=== PATIENT | female | born 1995 | race African-American/Black ===

== ENCOUNTER 2016-09-01 23:54 | Emergency (ER) | payer OTHER ==
[2016-09-02 00:01] VITALS: BP 102/68; PULSE 94; TEMP 97; BMI 23.3
--- NOTE | 2016-09-02 00:30 | PDOC ---
History of Present Illness - General Chief Complaint: Pain Stated Complaint: 28 WEEKS Time Seen by Provider: 09/02/16 00:05 History Source: Patient Exam Limitations: No Limitations - History of Present Illness Travel History: No Initial Comments: 09/02/16 00:26 28 Weeks , 21yo female patient presented to ED c/o upper abd pain. Patient states she was seen and evaluated by L&D department and sent to ED for further evaluation. Patient reports epigastric abd pain that began around 9pm last night. Patient denies n/v/d, fever, rash, constipation, back pain, CP, diff breathing or any other complaints at this time. Timing/Duration: reports: intermittent Quality: reports: mild Abdominal Pain Onset Location: reports: epigastric Pain Radiation: reports: no radiation Activities at Onset: reports: no specific activity Treatment Prior to Arrive: worse with: analgesics, antacids, cold pack, heat, laxative, enema, other Aggravating Factors: worse with: None, Defecation, Eating, Emotional upset, Exertion, [place], Movement, Voiding, Change in position Alleviating Factors: worse with: None, Belching, Shallow Breathing, Defecation, Eating, Holding Breath, Passing Gas, Change in Position, Rest, Voiding, Vomiting Past History - Travel Traveled outside of the country in the last 30 days: No Close contact w/someone who was outside of country & ill: No - Past Medical History Allergies/Adverse Reactions: Allergies Allergy/AdvReac Type Severity Reaction Status Date / Time No Known Allergies Allergy Verified 09/02/16 00:01 Home Medications: Ambulatory Orders Vitamins (Sjr) - 1 tab PO DAILY 09/01/16 Other medical history: denies - Reproductive History Is Patient Now?: Yes - Psycho/Social/Smoking Cessation Hx Anxiety: No Suicidal Ideation: No Smoking History: Never smoked Have you smoked in the past 12 months: No Number of Cigarettes Smoked Daily: 0 Hx Alcohol Use: No Drug/Substance Use Hx: No Substance Use Type: None Abd/GI Specific PMHX - Complaint Specific PMHX Colitis: No Diverticulitis: No Gall Bladder Disease: No GERD: No Hepatitis: No Irritable Bowel Synd (IBS): No Pancreatitis: No GI Ulcer Disease: No Review of Systems - Review of Systems Able to Perform ROS?: Yes Is the patient limited German proficient: No Constitutional: No: Chills, Fever Respiratory: No: Cough, Orthopnea, Shortness of Breath, Stridor, Wheezing Cardiac (ROS): No: Chest Pain, Edema, Palpitations ABD/GI: Yes: Other (Epigastric Abdominal Pain). No: Diarrhea, Nausea, Poor Appetite, Poor Fluid Intake, Rectal Bleeding, Vomiting, Indigestion, Tarry Stools : No: Burning, Dysuria, Discharge, Frequency, Flank Pain, Hematuria, Pain, Urgency Musculoskeletal: No: Back Pain Integumentary: No: Bruising, Erythema, Rash Neurological: No: Headache, Paresthesia, Seizure, Tremors, Weakness, Ataxia, Dizziness All Other Systems: Reviewed and Negative *Physical Exam - Vital Signs Last Vital Signs Temp Pulse Resp BP Pulse Ox 97 F L 94 H 18 102/68 100 09/01/16 23:59 09/01/16 23:59 09/01/16 23:59 09/01/16 23:59 09/01/16 23:59 - Physical Exam General Appearance: Yes: Nourished, Appropriately Dressed, Mild Distress. No: Apparent Distress, Moderate Distress, Severe Distress, Obese Neck: positive: Trachea midline, Supple. negative: Rigid, Decreased range of motion, Stridor, Lymphadenopathy (R), Lymphadenopathy (L) Respiratory/Chest: positive: Lungs Clear, Normal Breath Sounds. negative: Respiratory Distress, Accessory Muscle Use, Labored Respiration, Rapid RR, Decreased Breath Sounds, Rhonchi, Stridor, Wheezing Cardiovascular: positive: Regular Rhythm, Regular Rate. negative: Edema, JVD, Murmur Gastrointestinal/Abdominal: positive: Normal Bowel Sounds, Soft, Distended ( ), Tenderness (+ Epigastric). negative: Guarding, Rebound Musculoskeletal: positive: Normal Inspection. negative: CVA Tenderness Extremity: positive: Normal Capillary Refill, Normal Inspection, Normal Range of Motion. negative: Pedal Edema, Swelling Integumentary: positive: Normal Color, Dry, Warm Neurologic: positive: warranty administrator II-XII NML intact, Fully Oriented, Alert, Normal Mood/ Affect, Normal Response, Motor Strength /5 ED Treatment Course - LABORATORY CBC & Chemistry Diagram: 09/02/16 00:27 09/02/16 00:27 - RADIOLOGY Radiology Studies Ordered: Category Date Time Status GALLBLADDER US [US] Stat Ultrasound 09/02/16 00:13 Ordered Progress Note - Progress Note Progress Note: Normal Ultrasound of Gall Bladder. Labs WNL. Urine WNL. D/c to home with f/u. prob GERD r/t pregancy. *DC/Admit/Observation/Transfer Diagnosis at time of Disposition: Abdominal pain Qualifiers: Abdominal location: epigastric Qualified Code(s): R10.13 - Epigastric pain - Discharge Dispostion Disposition: HOME Condition at time of disposition: Stable Admit: No - Patient Instructions Printed Discharge Instructions: DI for Gastroesophageal Reflux Disease (GERD), DI for Abdominal Pain -- Early Additional Instructions: FOLLOW UP WITH YOUR LEGAL ADVISER OR YOUR PRIMARY CARE PROVIDER. TYLENOL FOR PAIN/ FEVER. AVOID GREASY/SPICY FOODS, AVOID SODA. INCREASE WATER INTAKE. TRY CRACKERS. RETURN IF SYMPTOMS WORSEN, OR ANY CONCERNS FOR FURTHER EVALUATION. TRY OVER THE COUNTER ZANTAC FOR SYMPTOMS MANAGEMENT. Print Language: KAZAKH
[2016-09-02 00:37] LABS: BASOPHIL 0.5 % (0-2.0); EOSINOPHIL 1.7 % (0-4.5); MCH 29.4 pg (25.7-33.7); MCHC 33.3 g/dl (32.0-36.0); MEAN CELL VOLUME 88.2 fl (80-96); MEAN PLT VOLUME 9.2 fl (7.5-11.1); NEUTROPHILS 61.3 % (42.8-82.8); PLATELET COUNT 240 K/MM3 (134-434); RDW 12.8 % (11.6-15.6); WHITE BLOOD COUNT 9.6 K/mm3 (4.0-10.0)
[2016-09-02 01:05] LABS: ALBUMIN 2.6 g/dl (3.4-5.0); AMYLASE 116 U/L (25-115); ANION GAP 11 (8-16); BILIRUBIN,TOTAL 0.2 mg/dL (0.2-1.0); CALCIUM 8.6 mg/dL (8.5-10.1); CO2 27 mmol/L (21-32); CREATININE 0.8 mg/dL (0.55-1.02); GLUCOSE,RANDOM 79 mg/dL (74-106); SGOT/AST 11 U/L (15-37); SGPT/ALT 14 U/L (12-78); TOT PROT 6.7 g/dl (6.4-8.2)
[2016-09-02 01:06] LABS: ALK PHOS 86 U/L (45-117)
[2016-09-02 02:00] LABS: URINE APPEARANCE CLEAR; URINE BILIRUBIN NEGATIVE (NEGATIVE); URINE BLOOD NEGATIVE (NEGATIVE); URINE COLOR LTYELLOW; URINE GLUCOSE (UA) NEGATIVE (NEGATIVE); URINE KETONE NEGATIVE (NEGATIVE); URINE LEUK ESTERASE NEGATIVE (NEGATIVE); URINE NITRITE NEGATIVE (NEGATIVE); URINE PROTEIN NEGATIVE (NEGATIVE); URINE UROBILINOGEN NEGATIVE E.U./dl (0.2-1.0)
== END 2016-09-02 02:02 | disposition home or self-care (01) ==
LOC: JER 23:54
DX: O26.893 Other specified pregnancy related conditions, third trimester (principal); R10.13 Epigastric pain; Z3A.28 28 weeks gestation of pregnancy
CPT/HCPCS: 36415; 76705-TC; 80053; 81003; 82150; 83690; 85025; 87086; 99283-25

== ENCOUNTER 2016-11-23 16:35 | Inpatient (IN) | payer OTHER ==
[2016-11-23 17:09] VITALS: BMI 26.6
[2016-11-23] MEDS ORDERED: BUTORPHANOL TARTRATE 1 MG/ML VIAL IVPB ONE (18:16)
--- NOTE | 2016-11-23 18:37 | HP ---
Past Medical History - Primary Care Physician PCP:: Hallie Kraft - Admission Chief Complaint: 21 yrs 11 40.3 weeks gestation srom since 3.00 pm History of Present Illness: PNC at [facility]. work Up , Opos, Rpr nr, Hbsag neg, Rubella pos, Quantifero neg, GBS neg , ! HrGtt 105, AfP neg NT screen neg, Modified Sequential neg Sono done By MFM reviewed . 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 Weeks Gestation by Dates: 40.3 ...EDC by Dates: 11/20/16 Heme/Onc: Yes: Anemia Infectious Disease: Yes: STD's (h/o chlamydia treated in 11/2012 & 05/2016 & 2015) Psych: No: Addictions, Anxiety, Bipolar, Depression, Panic Endocrine: No: Diabetes Mellitus - Past Surgical History Past Surgical History: Yes: None Hx Myomectomy: No Hx Transabdominal Cerclage: No - Smoking History Smoking history: Never smoked Have you smoked in the past 12 months: No Aproximately how many cigarettes per day: 0 - Alcohol/Substance Use Hx Alcohol Use: No History of Substance Use: reports: None Home Medications - Allergies Allergies/Adverse Reactions: Allergies Allergy/AdvReac Type Severity Reaction Status Date / Time No Known Allergies Allergy Verified 11/19/16 02:08 - Home Medications Home Medications: Ambulatory Orders Vitamins (Sjr) - 1 tab PO DAILY 09/01/16 Physical Exam - Maternity Vital Signs: Vital Signs Temperature 98.2 F 11/23/16 18:00 Pulse Rate 87 11/23/16 18:00 Respiratory Rate 20 11/23/16 18:00 Blood Pressure 121/82 11/23/16 18:00 O2 Sat by Pulse Oximetry (%) Constitutional: Yes: Well Nourished, No Distress Eyes: Yes: WNL HENT: Yes: WNL Neck: Yes: WNL Cardiovascular: Yes: WNL Lungs: Clear to auscultation Breast(s): Yes: WNL - Abdominal Exam/OB Fundal Height: 38 Number of Fetuses: Single Presentation: Vertex Contractions: Yes Regularity: Irregular (4-6min) Intensity: Mild Monitor Mode: External Heart Rate (range): 140 Heart Rate Location: [facility] Category: I Accelerations: Uniform Decelerations: None - Vaginal Exam/OB Vaginal Bleediing: No Speculum Exam: No Dilatation (cm): 2 Effacement (%): 60 Nitrazine Test: Positive Amniotic Fluid: Yes: Clear (gross leaking) Presentation: Vertex/Position Station: -2 - Physical Exam Musculoskeletal: Yes: WNL Extremities: Yes: WNL Edema: Yes Edema: LLE: Trace, RLE: Trace Integumentary: Yes: Tattoos Deep Tendon Reflex Grade: Normal +2 ...Motor Strength: WNL Psychiatric: Yes: WNL, Alert, Oriented - Labs Lab Results: Laboratory Tests 11/23/16 11/23/16 11/23/16 19:00 19:00 19:00 RBC 3.95 Hgb 11.5 D Hct 35.0 D Plt Count 223 Neutrophils % 68.2 Lymphocytes % 22.1 Monocytes % 9.0 INR 0.98 PTT (Actin FS) 30.0 Sodium 136 Potassium 4.2 Chloride 102 Carbon Dioxide 26 BUN 7 Creatinine 0.5 L D Random Glucose 68 L Calcium 8.8 Laboratory Tests 11/23/16 19:00 Blood Type O POSITIVE Problem List - Problems (1) Post term over 40 weeks Code(s): O48.0 - POST-TERM (2) SROM (spontaneous rupture of membranes) Code(s): XAJ5784 - (3) Labor established Code(s): QXT6183 - Assessment/Plan 21 yrs 40.3 weeks , SROM, gbs neg Plan pitocin augmentation prn vaginal delivery trial
[2016-11-23] MEDS: DEXTROSE 5%-LACTATED RINGERS 1,000 ML IV SCH ×2 (18:40→21:30)
[2016-11-23] MEDS ORDERED: SODIUM PHOSPHATE/NA BIPHOS 133 ML ENEMA PR ONE (18:49)
[2016-11-23 19:33] LABS: BASOPHIL 0.4 % (0-2.0); EOSINOPHIL 0.3 % (0-4.5); MCH 29.1 pg (25.7-33.7); MCHC 32.9 g/dl (32.0-36.0); MEAN CELL VOLUME 88.6 fl (80-96); MEAN PLT VOLUME 10.8 fl (7.5-11.1); NEUTROPHILS 68.2 % (42.8-82.8); PLATELET COUNT 223 K/MM3 (134-434); RDW 14.1 % (11.6-15.6); WHITE BLOOD COUNT 8.9 K/mm3 (4.0-10.0)
[2016-11-23 19:50] LABS: INR 0.98 (0.82-1.09); PROTHROMBIN TIME (PATIENT) 10.8 SEC (9.98-11.88)
[2016-11-23 20:01] LABS: CALCIUM 8.8 mg/dL (8.5-10.1); COCKROFT - GAULT 199.1975; CREATININE 0.5 mg/dL (0.55-1.02)
[2016-11-23 21:47] LABS: PLATELET ESTIMATE ADEQUATE (NORMAL)
[2016-11-23 21:48] LABS: PLATELET COMMENT2 FEW GIANT PLTS
[2016-11-23] MEDS ORDERED: OXYTOCIN 15 UNITS/ LR 250 ML 250 ML IVPB SCH (22:00)
--- NOTE | 2016-11-23 23:31 | PN ---
Progress Note, Labor Vaginal Exam #1 Labor Exam Date: 11/23/16 Labor Exam Time: 23:25 Heart Rate (range): 130-140 Dilatation: 4 Effacement (%): 90 Amniotic Membrane Status: Ruptured Presentation: Vertex/Position Station: -1 Remarks: fhr cat-1 uc 2-3 min pitocin augmentation started at 22.05 hr requests for epidural labor analgesia Vaginal Exam #2 Labor Exam Date: 11/24/16 Labor Exam Time: 03:55 Heart Rate (range): 120-130 Dilatation: 7 Effacement (%): 90 Amniotic Membrane Status: Ruptured Presentation: Vertex/Position (caput) Station: 0 Remarks: [id number] at-1, fhr changing bet cat-1 & cat-2 variable decels on & off are seen pitocin was d/sandi at 2.00am epidural effective since 23.45 hr on 11/23/16 Selected Entries 11/23/16 11/24/16 11/24/16 23:00 01:45 03:00 Temperature 98.0 F 98.7 F Pulse Rate 104 H 96 H Blood Pressure 107/53 105/61 Vaginal Exam #3 Labor Exam Date: 11/24/16 Labor Exam Time: 05:30 Heart Rate (range): 135 Dilatation: antlip Effacement (%): 100 Amniotic Membrane Status: Ruptured Presentation: Vertex/Position (caput) Station: +2 Remarks: fhr cat-2 , sometimes cat-1 uc 2-4 min Selected Entries 11/24/16 05:30 Pulse Rate 93 H Blood Pressure 123/84 6.00am 10 cm/vx +3, /no sensation for pushing /fhr cat-2 ineffective pushes , wait for passive descent. 7.00 am pt encouraged to push actively .
[2016-11-23] MEDS: ELECTROLYTE-148 SOLN 1,000 ML IV SCH (23:40)
[2016-11-24] MEDS ORDERED: FENTANYL/BUPIVACAINE/NS/PF - PCEA - 50 ML DISP.SYRIN EP SCH (00:30)
[2016-11-24] MEDS: ELECTROLYTE-148 SOLN 1,000 ML IV SCH (04:00)
[2016-11-24] MEDS ORDERED: BENZOCAINE 28 GM HEMORRHOIDAL OINTMENT TP PRN (07:37)
[2016-11-24] MEDS ORDERED: BISACODYL 10 MG SUPP.RECT RC PRN (07:37)
[2016-11-24] MEDS ORDERED: METHYLERGONOVINE MALEATE 0.2 MG/1 ML AMP IM PRN (07:37)
[2016-11-24] MEDS ORDERED: WITCH HAZEL 50% (TUCKS) 40 PAD/JAR PAD TP PRN (07:37)
[2016-11-24] MEDS ORDERED: BENZOCAINE 20% 57 GM BOTTLE TP PRN (07:37)
[2016-11-24] MEDS ORDERED: oxyCODONE HCL 5 MG TABLET PO PRN (07:37)
[2016-11-24] MEDS ORDERED: D5W-LR W/ 20 UNITS OXYTOCIN 1,000 ML IV SCH (07:45)
--- NOTE | 2016-11-24 07:54 | PN ---
Delivery - Delivery Vaginal Delivery: No Problems, Spontaneous Type of Anesthesia: Epidural Episiotomy/Laceration: None EBL (cc): 300 (100ml urine post delivery catheterisation ) Delivery, Single - Stages of Labor Date 1st Stage Initiatied: 11/23/16 Time 1st Stage Initiated: 17:00 Date 2nd Stage Initiated: 11/24/16 Time 2nd Stage Initiated: 06:00 Date of Delivery: 11/24/16 Time of Delivery: 07:21 Placenta: Yes: Spontaneous, Uterine Exploration - Condition of Infant Municipal Services Manager/Assistant Statistician Present: No Infant Gender: Female Weight: 5 lb 9 oz Position: Left, OA (cord around shoulder) Total Hours ROM (Hrs/Mins): 16hrs, 25 min - 1 Minute Total Score: 9 5 Minutes Total Score: 10 - [place] Feeding Plan Initial Plan: Elected not to breastfeed exclusively throughout hospitalization Remarks - Remarks Remarks: 21 yrs 40.3 weeks admitted for srom since 3.00pm 11/23/16. GBS neg . PNC at [facility] Pitocin augmentation was done Intrapartum course uneventful
[2016-11-24] MEDS: ACETAMINOPHEN 325 MG TABLET (FP) PO PRN (08:00)
[2016-11-24] MEDS: IBUPROFEN 600 MG TABLET (FP) PO PRN (08:00)
[2016-11-24] MEDS: FERROUS SO4 325 MG TABLET (FP) PO SCH ×3 (09:22→17:09)
[2016-11-24] MEDS: PRENATAL VITAMINS W/ FOLIC ACID TABLET (FP) PO SCH (09:40)
[2016-11-25] MEDS: IBUPROFEN 600 MG TABLET (FP) PO PRN ×2 (01:40→12:03)
[2016-11-25] MEDS: ACETAMINOPHEN 325 MG TABLET (FP) PO PRN ×2 (01:40→12:03)
[2016-11-25 08:52] LABS: BASOPHIL 0.5 % (0-2.0); EOSINOPHIL 0.7 % (0-4.5); MCH 29.6 pg (25.7-33.7); MCHC 33.4 g/dl (32.0-36.0); MEAN CELL VOLUME 88.6 fl (80-96); MEAN PLT VOLUME 10.2 fl (7.5-11.1); NEUTROPHILS 68.7 % (42.8-82.8); PLATELET COUNT 194 K/MM3 (134-434); RDW 14.3 % (11.6-15.6); WHITE BLOOD COUNT 9.8 K/mm3 (4.0-10.0)
[2016-11-25] MEDS: PRENATAL VITAMINS W/ FOLIC ACID TABLET (FP) PO SCH (09:17)
[2016-11-25] MEDS: FERROUS SO4 325 MG TABLET (FP) PO SCH ×3 (09:17→17:30)
[2016-11-25] MEDS ORDERED: DIPHTH,PERTUSS(ACELL),TET 0.5 ML DISP.SYRIN IM ONE (10:00)
--- NOTE | 2016-11-25 10:54 | PN ---
Post Progress Note - Subjective Subjective: asymptomatic Post Day: 1 Type of Delivery: Vital Signs: Vital Signs Temperature 98.2 F 11/25/16 08:29 Pulse Rate 81 11/25/16 08:29 Respiratory Rate 20 11/25/16 08:29 Blood Pressure 100/62 11/25/16 08:29 O2 Sat by Pulse Oximetry (%) 100 11/24/16 05:45 Breast Exam: Yes: Soft, Other (will try to Bf ). No: Engorged Uterus: Yes: Fundus Firm, Fundus below umbilicus, Non-tender Lochia: Yes: Rubra Lochia, amount: Moderate Extremities: Yes: Calves non-tender Perineum: Yes: Intact Activity: Ambulating - Labs Labs: CBC WBC 9.8 K/mm3 (4.0-10.0) 11/25/16 07:30 RBC 3.44 M/mm3 (3.60-5.2) L 11/25/16 07:30 Hgb 10.2 GM/dL (10.7-15.3) L D 11/25/16 07:30 Hct 30.5 % (32.4-45.2) L 11/25/16 07:30 MCV 88.6 fl (80-96) 11/25/16 07:30 MCHC 33.4 g/dl (32.0-36.0) 11/25/16 07:30 RDW 14.3 % (11.6-15.6) 11/25/16 07:30 Plt Count 194 K/MM3 (134-434) 11/25/16 07:30 MPV 10.2 fl (7.5-11.1) 11/25/16 07:30 Neutrophils % 68.7 % (42.8-82.8) 11/25/16 07:30 Lymphocytes % 24.3 % (8-40) 11/25/16 07:30 Monocytes % 5.8 % (3.8-10.2) 11/25/16 07:30 Eosinophils % 0.7 % (0-4.5) D 11/25/16 07:30 Basophils % 0.5 % (0-2.0) 11/25/16 07:30 Platelet Estimate Adequate (NORMAL) 11/23/16 19:00 Platelet Comment Mod large plts 11/23/16 19:00 Platelet Comment Few giant plts 11/23/16 19:00 Problem List - Problems (1) Post term over 40 weeks Code(s): O48.0 - POST-TERM (2) SROM (spontaneous rupture of membranes) Code(s): CPD6782 - (3) Labor established Code(s): BGG5093 - (4) Normal vaginal delivery Code(s): O80 - ENCOUNTER FOR FULL-TERM UNCOMPLICATED DELIVERY Assessment/Plan stable. plan ct pp care
[2016-11-25] MEDS ORDERED: SENNOSIDES/DOCUSATE COMBO (SENNA PLUS) TABLET (UD) PO PRN (22:00)
[2016-11-26] MEDS: ACETAMINOPHEN 325 MG TABLET (FP) PO PRN (03:42)
[2016-11-26] MEDS: IBUPROFEN 600 MG TABLET (FP) PO PRN (03:44)
[2016-11-26] MEDS: FERROUS SO4 325 MG TABLET (FP) PO SCH (07:49)
--- NOTE | 2016-11-26 08:02 | DS ---
Physical Exam-SUPERINTENDENT PIPELINES Vital Signs: Vital Signs Temperature 98.6 F 11/25/16 22:00 Pulse Rate 86 11/25/16 22:00 Respiratory Rate 18 11/25/16 22:00 Blood Pressure 110/53 11/25/16 22:00 O2 Sat by Pulse Oximetry (%) 100 11/24/16 05:45 Constitutional: Yes: Well Nourished. No: Obese Eyes: Yes: WNL HENT: Yes: WNL Neck: Yes: WNL Cardiovascular: Yes: WNL Respiratory: Yes: WNL Gastrointestinal: Yes: WNL ...Rectal Exam: Yes: WNL Renal/: Yes: WNL ....Post : Yes: Uterus firm, Uterus non-tender, Moderate lochia rubra ( perineum intact) Breast(s): Yes: WNL Musculoskeletal: Yes: WNL Extremities: Yes: WNL. No: Calf Tenderness Edema: Yes Edema: LLE: Trace, RLE: Trace Integumentary: Yes: Tattoos Neurological: Yes: WNL ...Motor Strength: WNL Psychiatric: Yes: WNL Labs: CBC, BMP 11/25/16 07:30 11/23/16 19:00 Delivery - Delivery Vaginal Delivery: No Problems, Spontaneous Type of Anesthesia: Epidural Episiotomy/Laceration: None EBL (cc): 300 (100ml urine post delivery catheterisation ) Delivery, Single - Stages of Labor Date 1st Stage Initiatied: 11/23/16 Time 1st Stage Initiated: 17:00 Date 2nd Stage Initiated: 11/24/16 Time 2nd Stage Initiated: 06:00 Date of Delivery: 11/24/16 Time of Delivery: 07:21 Time Placenta Delivered: 07:25 Placenta: Yes: Spontaneous, Uterine Exploration - Condition of Infant Inside Wirer/Division Merchandise Manager Present: No Infant Gender: Female Weight: 5 lb 9 oz Position: Left, OA (cord around shoulder) Total Hours ROM (Hrs/Mins): 16hrs, 25 min - 1 Minute Total Score: 9 5 Minutes Total Score: 10 - [place] Feeding Plan Initial Plan: Elected not to breastfeed exclusively throughout hospitalization Remarks - Remarks Remarks: 21 yrs 40.3 weeks admitted for srom since 3.00pm 11/23/16. GBS neg . PNC at [facility] Pitocin augmentation was done Intrapartum course uneventful . pp course uneventful anemia counselled. discharge today Discharge Summary Reason For Visit: LABOR Current Active Problems Labor established (Acute) Normal vaginal delivery (Acute) Post term over 40 weeks (Acute) SROM (spontaneous rupture of membranes) (Acute) Condition: Stable - Instructions Diet, Activity, Other Instructions: Post Instructions DIET: Continue good diet high in protein, calcium, and iron rich foods. Drink at least eight (8) glasses of water daily in addition to other fluids. Regular diet MEDICATIONS: Continue vitamins and iron as previously directed. Motrin and Tylenol may be taken for minor discomfort. ACTIVITY: Mild to moderate exercise may be started in two (2) weeks. Take frequent rest periods. Resume normal activity after six (6) week check up. WOUND CARE OF OPERATIVE SITE: Continue use of perineal bottle until vaginal discharge stops. Keep area clean. Shower daily. Keep abdominal wound dry. Report any drainage or redness to physician. Tub baths, tampons and douches are not permitted for [address] Breast feeding x& or Bottle feeding BREAST CARE: (For those that are not breast feeding): If engorgement occurs: Wear tight fitting bra. Take Tylenol or Motrin for pain. Apply cold packs (ice in bags to each breast ) FAMILY PLANNING: There are many control alternatives to pursue and they should be discussed at your first office visit. You may resume sexual activity after your six (6) week check up. (Remember, breast feeding is not a contraceptive) NEXT PHYSICIAN APPOINTMENT: Be certain to call for a six (6) week appointment, unless otherwise directed. Call Clinic or got to Emergency Dept if you have any of the following: Heavy vaginal bleeding Painful urination Leg pain Unusual odor noted to vaginal bleeding High fever Red streaking noted on breast Referrals: Hallie Kraft MD [Staff Physician] - Disposition: HOME - Home Medications Comprehensive Discharge Medication List: Ambulatory Orders Vitamins (Sjr) - 1 tab PO DAILY 09/01/16 Acetaminophen [Tylenol .Regular Strength -] 650 mg PO Q3H PRN #0 tablet Ferrous Sulfate [Feosol] 325 mg PO BID #60 tab 11/25/16 Ibuprofen [Motrin -] 200 mg PO Q4H PRN #0 tablet 11/25/16 Vitamins (Sjr) - 1 tab PO DAILY tablet 11/25/16
[2016-11-26 08:35] VITALS: BP 98/66; PULSE 81; TEMP 97.9
[2016-11-26] MEDS: PRENATAL VITAMINS W/ FOLIC ACID TABLET (FP) PO SCH (10:41)
== END 2016-11-26 11:30 | disposition home or self-care (01) | DRG 560 ==
LOC: JLDR 16:35 → J3W 11-24 08:40
PROVIDERS: ADMIT Obstetrics & Gynecology; ATTEND Obstetrics & Gynecology
PROC: 10E0XZZ Delivery of Products of Conception, External Approach (ICD-10-PCS; principal; 2016-11-24)
DX: O48.0 Post-term pregnancy (principal); Z3A.40 40 weeks gestation of pregnancy; O99.02 Anemia complicating childbirth; Z37.0 Single live birth
CPT/HCPCS: 36415; 59409; 80048; 85025; 85610; 85730; 86593; 86850; 86900; 86901; 90715

== ENCOUNTER 2018-10-08 08:33 | Emergency (ER) | payer OTHER ==
[2018-10-08 08:48] VITALS: BP 110/62; PULSE 89; TEMP 98.2; BMI 24.6
[2018-10-08] MEDS ORDERED: TOBRAMYCIN 0.3% OPHTH SOLN 5 ML BOTTLE OD ONE (09:06)
[2018-10-08] MEDS ORDERED: TOBRAMYCIN 0.3% OPHTH SOLN 5 ML BOTTLE ONE (09:10)
--- NOTE | 2018-10-08 09:13 | PDOC ---
History of Present Illness - General Chief Complaint: Eye Problem Stated Complaint: EYE PROBLEM Time Seen by Provider: 10/08/18 09:00 History Source: Patient Exam Limitations: No Limitations - History of Present Illness Initial Comments: 10/08/18 09:09 onset of thick yellow drainage from left eye started this am while at [facility] and has worsened Timing/Duration: unsure, 24 hours Severity: moderate Associated Symptoms: reports: fever/chills Past History - Travel Traveled outside of the country in the last 30 days: No Close contact w/someone who was outside of country & ill: No - Past Medical History Allergies/Adverse Reactions: Allergies Allergy/AdvReac Type Severity Reaction Status Date / Time No Known Allergies Allergy Verified 10/08/18 08:45 Home Medications: Ambulatory Orders Tobramycin 0.3% Ophth Soln [Tobrex Ophthalmic Solution -] 2 drop OS QID #1 drops 10/08/18 Asthma: No Cancer: No Cardiac Disorders: No Diabetes: No HTN: No Seizures: No Thyroid Disease: No - Suicide/Smoking/Psychosocial Hx Smoking History: Never smoked Have you smoked in the past 12 months: No Number of Cigarettes Smoked Daily: 0 Hx Alcohol Use: No Drug/Substance Use Hx: No Substance Use Type: None Hx Substance Use Treatment: No *Physical Exam - Vital Signs Last Vital Signs Temp Pulse Resp BP Pulse Ox 98.2 F 89 18 110/62 100 10/08/18 08:45 10/08/18 08:45 10/08/18 08:45 10/08/18 08:45 10/08/18 08:45 - Physical Exam General Appearance: Yes: Nourished, Appropriately Dressed, Apparent Distress, Mild Distress HEENT: positive: Normal ENT Inspection, TMs Normal, Pharynx Normal, Other ( erythema with thick yellow drianage from left eye, mild swelling to lid. Visual acuity 20/25 bilaterally). negative: TINY Neck: positive: Lymphadenopathy (R), Lymphadenopathy (L). negative: Tender Respiratory/Chest: positive: Lungs Clear, Normal Breath Sounds Integumentary: positive: Normal Color, Dry, Warm Neurologic: positive: graphics edit technician II-XII NML intact, Fully Oriented, Alert, Normal Mood/ Affect, Normal Response, Motor Strength 5/5 Moderate Sedation - Procedure Monitoring Vital Signs: Procedure Monitoring Vital Signs Temperature 98.2 F 10/08/18 08:45 Pulse Rate 89 10/08/18 08:45 Respiratory Rate 18 10/08/18 08:45 Blood Pressure 110/62 10/08/18 08:45 O2 Sat by Pulse Oximetry (%) 100 10/08/18 08:45 *DC/Admit/Observation/Transfer Diagnosis at time of Disposition: Acute bacterial conjunctivitis Qualifiers: Laterality: left Qualified Code(s): H10.32 - Unspecified acute conjunctivitis, left eye - Discharge Dispostion Disposition: HOME Condition at time of disposition: Stable Decision to Admit order: No - Prescriptions Prescriptions: Tobramycin 0.3% Ophth Soln [Tobrex Ophthalmic Solution -] 2 drop OS QID #1 drops - Referrals - Patient Instructions Printed Discharge Instructions: DI for Conjunctivitis Additional Instructions: Rest, avoid rubbing eyes Wash hands frequently as this is very contagious Wash hands, use eye drops as directed, wash hands after use Do not share eyedrops with other person to may become infected as this will infect them Tobramycin drops 2 drops to affected eye 4 times a day for 5 days Avoid contact with others until redness and discharge is gone from eyes. Followup with ophthalmology or private physician as needed - Post Discharge Activity Forms/Work/School Notes: Back to Work
== END 2018-10-08 09:20 | disposition home or self-care (01) ==
LOC: JER 08:33 → JERFT 08:33
DX: H10.32 Unspecified acute conjunctivitis, left eye (principal)
CPT/HCPCS: 99281-25

== ENCOUNTER 2019-06-09 08:35 | Emergency (ER) | payer OTHER ==
[2019-06-09 08:40] VITALS: TEMP 98.2; BMI 24.1
--- NOTE | 2019-06-09 08:48 | PDOC ---
History of Present Illness - General Chief Complaint: Cold Symptoms Stated Complaint: COLD SYMPTOMS Time Seen by Provider: 06/09/19 08:40 History Source: Patient - History of Present Illness Timing/Duration: reports: other Past History - Past Medical History Allergies/Adverse Reactions: Allergies Allergy/AdvReac Type Severity Reaction Status Date / Time No Known Allergies Allergy Verified 06/09/19 08:37 Asthma: No Cancer: No Cardiac Disorders: No Diabetes: No HTN: No Seizures: No Thyroid Disease: No - Psycho Social/Smoking Cessation Hx Smoking History: Never smoked Have you smoked in the past 12 months: No Number of Cigarettes Smoked Daily: 0 Hx Alcohol Use: No Drug/Substance Use Hx: No Substance Use Type: None Hx Substance Use Treatment: No Review of Systems - Review of Systems Constitutional: Yes: Malaise. No: Chills, Fever HEENTM: Yes: Ear Pain, Throat Pain Respiratory: No: Cough *Physical Exam - Vital Signs Last Vital Signs Temp Pulse Resp BP Pulse Ox 98.2 F 78 18 99/54 L 99 06/09/19 08:38 06/09/19 08:38 06/09/19 08:38 06/09/19 08:38 06/09/19 08:38 - Physical Exam Comments: 06/09/19 08:48 General Appearance: Yes: Appropriately Dressed. No: Apparent Distress HEENT: positive: Normal ENT Inspection, Normal Voice. negative: Scleral Icterus (R), Scleral Icterus (L) Neck: positive: Supple. negative: Lymphadenopathy (R), Lymphadenopathy (L) Respiratory/Chest: positive: Lungs Clear, Normal Breath Sounds. negative: Respiratory Distress Cardiovascular: positive: Regular Rate, S1, S2 Integumentary: positive: Dry, Warm Neurologic: positive: Fully Oriented, Alert, Normal Mood/Affect Medical Decision Making - Medical Decision Making 06/09/19 08:47 23-year-old female, no significant history, here with sore throat with headache , left ear pain and malaise x2 days. No cough, fever, photophobia, neck pain, vomiting diarrhea or rash see exam Viral URI Exam unremarkable (BP low-baseline per pt) -Dc w/ supportive tx Discharge - Discharge Information Problems reviewed: Yes Clinical Impression/Diagnosis: URI (upper respiratory infection) Qualifiers: URI type: unspecified viral URI Qualified Code(s): J06.9 - Acute upper respiratory infection, unspecified Condition: Good Disposition: HOME - Follow up/Referral - Patient Discharge Instructions Patient Printed Discharge Instructions: DI for Viral Upper Respiratory Infection -- Adult - Post Discharge Activity Work/Back to School Note: Back to Work
[2019-06-09 08:51] VITALS: BP 97/65; PULSE 81
[2019-06-09] MEDS ORDERED: ACETAMINOPHEN 160 MG/5 ML 473ML BULK BOTTLE ONE (09:18)
== END 2019-06-09 09:05 | disposition home or self-care (01) ==
LOC: JERFT 08:35
DX: J06.9 Acute upper respiratory infection, unspecified (principal); B97.89 Other viral agents as the cause of diseases classified elsewhere
CPT/HCPCS: 99282-25

== ENCOUNTER 2019-09-30 14:24 | Emergency (ER) | payer OTHER ==
[2019-09-30 14:34] VITALS: BP 115/62; PULSE 81; TEMP 98.2; BMI 22.4
--- NOTE | 2019-09-30 14:34 | PDOC ---
Rapid Medical Evaluation Time Seen by Provider: 09/30/19 14:31 Medical Evaluation: Allergies Allergy/AdvReac Type Severity Reaction Status Date / Time No Known Allergies Allergy Verified 06/09/19 08:37 09/30/19 14:32 have performed a brief in-person evaluation of this patient. The patient presents with a chief complaint of: "I've been sweating all day and feel dehydrated" per pt. Also w/ ? increased thirst. No documented fever. No body aches or URI sxs. Denies any pmhx Pertinent physical exam findings:stable and well bipin I have ordered the following:upreg/ua/FS The patient will proceed to the ED for further evaluation. Discharge Disposition - Diagnosis Sweating - Referrals - Patient Instructions - Post Discharge Activity
[2019-09-30] MEDS ORDERED: IBUPROFEN 600 MG TABLET (FP) PO ONE ×2 (15:22→15:24)
[2019-09-30 16:05] LABS: EPI CELLS 0.8 /HPF (0-5/HPF); HYALINE CASTS 1 /lpf (0-8); URINE APPEARANCE CLEAR; URINE BACTERIA 9.1 /hpf (NEGATIVE); URINE BILIRUBIN NEGATIVE (NEGATIVE); URINE COLOR YELLOW; URINE GLUCOSE (UA) NEGATIVE (NEGATIVE); URINE KETONE NEGATIVE (NEGATIVE); URINE LEUK ESTERASE NEGATIVE (NEGATIVE); URINE NITRITE NEGATIVE (NEGATIVE); URINE PROTEIN NEGATIVE (NEGATIVE); URINE RBC 2 /hpf (0-4); URINE UROBILINOGEN 0.2 mg/dL (0.2-1.0); URINE WBC 1 /hpf (0-5)
--- NOTE | 2019-09-30 16:16 | PDOC ---
History of Present Illness - General Chief Complaint: Weakness Stated Complaint: PAIN Time Seen by Provider: 09/30/19 14:31 History Source: Patient Exam Limitations: No Limitations Past History - Travel Traveled outside of the country in the last 30 days: No Close contact w/someone who was outside of country & ill: No - Past Medical History Allergies/Adverse Reactions: Allergies Allergy/AdvReac Type Severity Reaction Status Date / Time No Known Allergies Allergy Verified 09/30/19 14:34 Home Medications: Ambulatory Orders Ibuprofen 600 mg PO Q6H #30 tablet 09/30/19 Oseltamivir Phosphate [Tamiflu] 75 mg PO BID #10 capsule 09/30/19 Asthma: No Cancer: No Cardiac Disorders: No COPD: No Diabetes: No HTN: No Seizures: No Thyroid Disease: No - Psycho Social/Smoking Cessation Hx Smoking History: Never smoked Have you smoked in the past 12 months: No Number of Cigarettes Smoked Daily: 0 Hx Alcohol Use: No Drug/Substance Use Hx: No Substance Use Type: None Hx Substance Use Treatment: No Review of Systems - Review of Systems Able to Perform ROS?: Yes Comments:: 09/30/19 16:13 CONSTITUTIONAL: Present: Subjective fever, chills, body aches Absent: diaphoresis, generalized weakness, malaise, loss of appetite HEENT: Present: rhinorrhea, nasal congestion, throat pain. Absent: difficulty swallowing, mouth swelling, ear pain, eye pain, visual Changes CARDIOVASCULAR: Absent: chest pain, loss of consciousness, palpitations, irregular heart rate, peripheral edema RESPIRATORY: Absent: Cough, shortness of breath, dyspnea with exertion, orthopnea, wheezing, stridor, hemoptysis GASTROINTESTINAL: Absent: abdominal pain, abdominal distension, nausea, vomiting, diarrhea, constipation, melena, hematochezia SKIN: Absent: rash, itching, pallor NEUROLOGIC: Absent: Headache, focal weakness or paresthesias, dizziness, unsteady gait, seizure, mental status changes, bladder or bowel incontinence Is the patient limited French proficient: No *Physical Exam - Vital Signs Last Vital Signs Temp Pulse Resp BP Pulse Ox 98.2 F 81 18 115/62 100 09/30/19 14:31 09/30/19 14:31 09/30/19 14:31 09/30/19 14:31 09/30/19 14:31 - Physical Exam 02/26/20 16:13 GENERAL: Well developed, well nourished. Awake and alert. No acute distress. HEENT: Normocephalic, atraumatic. PERRLA, EOMI. No conjunctival pallor. Sclera are non- icteric. Moist mucous membranes. Oropharynx is clear. NECK: Supple. Full ROM. No JVD. No lymphadenopathy. CARDIOVASCULAR: Regular rate and rhythm. No murmurs, rubs, or gallops. Distal pulses are 2+ and symmetric. PULMONARY: No evidence of respiratory distress. Lungs clear to auscultation bilaterally. No wheezing, rales or rhonchi. ABDOMINAL: Soft. Non-tender. Non-distended. No rebound or guarding. No organomegaly. Normoactive bowel sounds. MUSCULOSKELETAL Normal range of motion at all joints. No bony deformities or tenderness. No CVA tenderness. EXTREMITIES: No cyanosis. No clubbing. No edema. No calf tenderness. SKIN: Warm and dry. Normal capillary refill. No rashes. No jaundice. NEUROLOGICAL: Alert, awake, appropriate. Cranial nerves 2-12 intact. No deficits to light touch and temperature in face, upper extremities and lower extremities. No motor deficits in the in face, upper extremities and lower extremities. Normoreflexic in the upper and lower extremities. Normal speech. Toes are down- going bilaterally. Gait is normal without ataxia. PSYCHIATRIC: Cooperative. Good eye contact. Appropriate mood and affect. ED Treatment Course - ADDITIONAL ORDERS Additional order review: Laboratory Results 09/30/19 09/30/19 09/30/19 14:55 14:55 14:52 POC Glucometer 85 Urine Color Yellow Urine Appearance Clear Urine pH 7.0 Ur Specific [place] 1.008 L Urine Protein Negative Urine Glucose (UA) Negative Urine Ketones Negative Urine Blood Trace Urine Nitrite Negative Urine Bilirubin Negative Urine Urobilinogen 0.2 Ur Leukocyte Esterase Negative Urine WBC (Auto) 1 Urine RBC (Auto) 2 Urine Casts (Auto) 1 U Epithel Cells (Auto) 0.8 Urine Bacteria (Auto) 9.1 Urine HCG, Qual Negative 09/30/19 14:52 POC Glucometer 85 - Medications Given in the ED: ED Medications Discontinued Medications Generic Name Dose Route Start Last Admin Trade Name Freq PRN Reason Stop Dose Admin Ibuprofen 600 mg 09/30/19 15:22 09/30/19 15:26 Motrin - PO 09/30/19 15:23 600 mg ONCE ONE Administration Medical Decision Making - Medical Decision Making 09/30/19 16:13 Patient is a 24-year-old female, otherwise healthy, who presents to the ER today for 2 days of chills, body aches, subjective fevers and nasal congestion. She states that she has been very thirsty and has been drinking more than usual. She states that at home she drinks many glasses of water and she still feels dehydrated and weak. 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 Denies earaches, cough, sore throat, nausea, vomiting and urinary symptoms. A/P: Viral illness On exam lungs are clear to auscultation bilateral without wheezes rales or rhonchi. Mild nasal congestion noted. Rest of exam is unremarkable. POC glucose: 81 UA is negative, negative. Rapid flu is negative, however given patient works at a detention will treat for flu as she has had sick contacts. Discharge home with primary care follow-up. I discussed the physical exam findings, ancillary test results and final diagnoses with the patient. I answered all of the patient's questions. The patient was satisfied with the care received and felt comfortable with the discharge plan and treatment plan. The Patient agrees to follow up with the primary care physician/specialist within 24-72 hours. Return precautions were given. Discharge - Discharge Information Problems reviewed: Yes Clinical Impression/Diagnosis: Flu-like symptoms Condition: Stable Disposition: HOME - Admission No - Follow up/Referral Referrals: Ivonne Alejandra MD [Primary Care Provider] - - Patient Discharge Instructions Patient Printed Discharge Instructions: DI for Influenza -- Adult Additional Instructions: You have the flu. This is a virus that will get better on its own in approximately 7-10 days. You will most likely have a fever for 7-10 days because of the flu. This is to be expected. Drink plenty of fluids to prevent dehydration and get plenty of rest. Warm tea and cough drops may help your symptoms as well. Take the tamiflu twice a day for 5 days to help reduce the symptoms of the flu. This medication will not cure the flu. Take Motrin as directed for pain and fever. Take all other medications as prescribed. Follow up with your primary care doctor this week Return to the ED for difficulty breathing, shortness of breath, weakness, or if you have any other changes in your symptoms. - Post Discharge Activity Work/Back to School Note: Back to Work
== END 2019-09-30 16:33 | disposition home or self-care (01) ==
LOC: JERFT 14:24
DX: J11.1 Influenza due to unidentified influenza virus with other respiratory manifestations (principal)
CPT/HCPCS: 81003; 82962; 84703; 87804; 99283-25

== ENCOUNTER 2020-09-22 16:46 | Emergency (ER) | payer OTHER ==
[2020-09-22] MEDS ORDERED: NAPROXEN 500 MG TABLET PO ONE (17:33)
[2020-09-22 17:37] VITALS: BP 102/64; PULSE 65; TEMP 98.1; BMI 26.6
[2020-09-22] MEDS ORDERED: NAPROXEN 500 MG TABLET ONE (17:38)
[2020-09-22] MEDS ORDERED: CYCLOBENZAPRINE HCL 10 MG TABLET (FP) PO ONE (18:49)
[2020-09-22] MEDS ORDERED: CYCLOBENZAPRINE HCL 10 MG TABLET (FP) ONE (18:56)
== END 2020-09-22 19:04 | disposition home or self-care (01) ==
LOC: FER 16:46
DX: M79.642 Pain in left hand (principal); M54.5 Low back pain
CPT/HCPCS: 72070-TC-FY; 72100-TC-FY; 73130-TC-LT-FY; 99285-25

== ENCOUNTER 2021-04-18 12:51 | Emergency (ER) | payer SELFPAY ==
[2021-04-18 13:01] VITALS: BP 116/68; PULSE 85; TEMP 98.3; BMI 23.3
== END 2021-04-18 15:50 | disposition home or self-care (01) ==
LOC: JER 12:51
DX: J02.9 Acute pharyngitis, unspecified (principal); Z11.52 Encounter for screening for COVID-19
CPT/HCPCS: 87880; 99283-25; C9803; U0003; U0005

== ENCOUNTER 2021-11-11 16:03 | Emergency (ER) | payer OTHER ==
[2021-11-11 16:08] VITALS: BP 111/59; PULSE 75; TEMP 99.1; BMI 25.0
[2021-11-12 16:07] LABS: SARS-CoV-2 NAA Not Detected (Not Detected)
== END 2021-11-11 17:10 | disposition home or self-care (01) ==
LOC: JER 16:03
DX: R05.1 Acute cough (principal); J09.X2 Influenza due to identified novel influenza A virus with other respiratory manifestations
CPT/HCPCS: 87804; 99283-25; C9803-CS; U0003; U0005

== ENCOUNTER 2021-11-13 09:22 | Emergency (ER) | payer OTHER ==
[2021-11-13 09:40] VITALS: BP 96/58; PULSE 90; TEMP 98; BMI 29.1
== END 2021-11-13 12:39 | disposition home or self-care (01) ==
LOC: JERFT 09:22
DX: J06.9 Acute upper respiratory infection, unspecified (principal)
CPT/HCPCS: 71046-TC-FY; 99283-25

== ENCOUNTER 2022-04-02 10:36 | Emergency (ER) | payer OTHER ==
[2022-04-02 11:12] VITALS: BP 108/71; PULSE 82; RESP 18; TEMP 98; BMI 25.8
[2022-04-02] MEDS ORDERED: NAPROXEN 500 MG TABLET PO ONE (12:06)
[2022-04-02 13:23] LABS: BASO % 0.9 % (0-2.0); EOS % 2.7 % (0-4.5); HEMATOCRIT 38.8 % (32.4-45.2); HEMOGLOBIN 12.6 GM/dL (10.7-15.3); LYMPH % 35.1 % (8-40); MCH 28.7 pg (25.7-33.7); MCHC 32.6 g/dl (32.0-36.0); MEAN CELL VOLUME 88.2 fl (80-96); MEAN PLT VOLUME 9.5 fl (7.5-11.1); NEUT % 53.3 % (42.8-82.8); PLATELET COUNT 285 10^3/uL (134-434); RDW 13.3 % (11.6-15.6); WHITE BLOOD COUNT 6.7 K/mm3 (4.0-10.0)
[2022-04-02 13:50] LABS: ALBUMIN 3.5 g/dl (3.4-5.0); CALCIUM 9.3 mg/dL (8.5-10.1)
[2022-04-02 13:51] LABS: BLOOD UREA NITROGEN 9.5 mg/dL (7-18)
[2022-04-02 13:52] LABS: CREATININE 0.6 mg/dL (0.55-1.3)
[2022-04-02 13:53] LABS: PH,URINE 6.5 (5.0-8.0); URINE APPEARANCE CLEAR; URINE BILIRUBIN NEGATIVE (NEGATIVE); URINE COLOR YELLOW; URINE GLUCOSE (UA) NEGATIVE (NEGATIVE); URINE KETONE NEGATIVE (NEGATIVE); URINE LEUK ESTERASE NEGATIVE (NEGATIVE); URINE NITRITE NEGATIVE (NEGATIVE); URINE PROTEIN NEGATIVE (NEGATIVE); URINE UROBILINOGEN 0.2 mg/dL (0.2-1.0)
[2022-04-02 13:54] LABS: BILIRUBIN,TOTAL 0.6 mg/dL (0.2-1); TOT PROT 7.8 g/dl (6.4-8.2)
[2022-04-02] MEDS ORDERED: NAPROXEN 500 MG TABLET ONE (14:24)
== END 2022-04-02 14:30 | disposition home or self-care (01) ==
LOC: JER 10:36
DX: R07.9 Chest pain, unspecified (principal)
CPT/HCPCS: 36415; 71046-TC-FY; 80053; 81003; 83690; 84484; 84703; 85025; 93005; 93010; 99285-25